=== PATIENT | male | born 1985 | race Caucasian/White ===

== ENCOUNTER 2016-09-26 10:32 | Emergency (ER) | payer MEDICAID ==
--- NOTE | 2016-09-26 10:45 | ED Physician Chart ---
Chief Complaint/HPI - Patient Information Date Seen:: 09/26/16 Time Seen:: 10:49 Chief Complaint:: RIGHT CALF PAIN History of Present Illness:: THIS IS A 30 YO MALE [employer] O[employer] WHO STATES THAT WHILE RUNNING HE SUDDENLY HAD PAIN IN THE RIGHT CALF WHICH LATER STARTED TO SWELL. THE INJURY OCCURRED YESTERDAY WHILE PLAYING [employer]. HE NOW HAS MORE PAIN AND SWELLING TODAY WITH PAINFUL ROM. HE DENIES ALL OTHER INJURIES AND MEDICAL PROBLEMS. Allergies:: Allergies Allergy/AdvReac Type Severity Reaction Status Date / Time No Known Allergies Allergy Verified 09/26/16 10:39 Historian:: Patient Review:: Nurse's Note Reviewed Review of Systems - Review of Systems General/Constitutional: No fever, No chills, No weight loss, No weakness, No diaphoresis, No edema, No loss of appetite Skin: No skin lesions, No rash, No bruising Head: No headache, No light-headedness Eyes: No loss of vision, No pain, No diplopia ENT: No earache, No nasal drainage, No sore throat, No tinnitus Neck: No neck pain, No swelling, No thyromegaly, No stiffness, No mass noted Cardio Vascular: No chest pain, No palpitations, No PND, No orthopnea, No edema Pulmonary: No SOB, No cough, No sputum, No wheezing GI: No nausea, No vomiting, No diarrhea, No pain, No melena, No hematochezia, No constipation, No hematemesis G/U: No dysuria, No frequency, No hematuria Musculoskeletal: No bone or joint pain, No back pain, Muscle pain (RIGHT CALF PAIN AND SWELLING) Endocrine: No polyuria, No polydipsia Psychiatric: No prior psych history, No depression, No anxiety, No suicidal ideation Hematopoietic: No bruising, No lymphadenopathy Allergic/Immuno: No urticaria, No angioedema Neurological: No syncope, No focal symptoms, No weakness, No paresthesia, No headache, No seizure, No dizziness, No confusion, No vertigo Past Medical History - Past Medical History Obtainable: Yes Past Medical History: No significant medical hx Family History: None Social History: Non Smoker, No Alcohol, No Drug Use Surgical History: None Psychiatricy History: None Medication: Reviewed Physical Exam - Physical Examination General/Constitutional: Awake, Well-developed, well-nourished, Alert, No distress, GCS 15, Non-toxic appearing, Ambulatory Head: Atraumatic Eyes: Lids, conjuctiva normal, PERRL, EOMI Skin: Nl inspection, No rash, No skin lesions, No ecchymosis, Well hydrated, No lymphadenopathy ENMT: External ears, nose nl, Nasal exam nl, Lips, teeth, gums nl Neck: Nontender, Full ROM w/o pain, No JVD, No nuchal rigidity, No bruit, No mass, No stridor Respiratory: Nl effort/Exclusion, Clear to Auscultation, No Wheeze/Rhonchi/Rales Cardio Vascular: RRR, No murmur, gallop, rubs, NL S1 S2 GI: No tenderness/rebounding/guarding, No organomegaly, No hernia, Normal BS's, Nondistended, No mass/bruits, No McBurney tenderness : No CVA tenderness Extremities: Full ROM, normal strength in all extremities, No edema, Normal digits & nails Other Extremities comments:: THERE IS SWELLING, REDNESS AND TENDERNESS OF THE RIGHT CALF MUSCLE AREA. Neuro/Psych: Alert/oriented, DTR's symmetric, Normal sensory exam, Normal motor strength, Judgement/insight normal, Mood normal, Normal gait, No focal deficits Misc: normal gait, Normal back, No paraspinal tenderness ED Septic Shock - . Is Septic Shock (SBP<90, OR Lactate>4 mmol\L) present?: No
--- NOTE | 2016-09-26 11:49 | Diagnostic Imaging Report ---
Ultrasound right upper leg (calf region) HISTORY: Pain Sonographic sector images obtained over the soft tissues of the right upper leg/calf area. No focal lesions are seen. No abnormal masses. No abnormal fluid collections. IMPRESSION: Negative examination. If necessary, a follow-up MRI exam would provide additional evaluation of the musculature.
--- NOTE | 2016-09-26 13:18 | Diagnostic Imaging Report ---
Right lower extremity Doppler venous ultrasound exam HISTORY: Pain/swelling Sonographic sector images were obtained through the deep venous systems of the right leg. Associated Doppler data was obtained. The exam demonstrates patency of the common femoral, superficial femoral, popliteal, and posterior tibial veins. Specifically, no thrombus is seen. There are normal compressibility and augmentation responses. IMPRESSION: Negative exam for deep vein thrombophlebitis.
== END 2016-09-26 12:03 | disposition home or self-care (01) ==
LOC: ER 10:32
DX: M79.89 Other specified soft tissue disorders (principal); M79.661 Pain in right lower leg
CPT/HCPCS: 76881-TC-RT; 93971-TC-RT; Z7502